=== PATIENT | male | born 1975 | race Caucasian/White ===

== ENCOUNTER 2020-06-22 07:36 | Emergency (ER) | payer OTHER, SELFPAY ==
[2020-06-22] VITALS (14 sets, daily range): BP systolic 111–121; BP diastolic 67–78; PULSE 49–55; RESP 12–22; TEMP 36.2; O2SAT 95–100; BMI 26.4
--- NOTE | 2020-06-22 07:57 | ED.SYNCOPE ---
HPI - Syncope General Chief Complaint: Syncope Stated Complaint: Syncope Time Seen by Provider: 06/22/20 07:44 Source: patient Mode of arrival: EMS Limitations: no limitations History of Present Illness HPI narrative: 45-year-old gentleman with a history of hyperlipidemia presents after a syncopal episode this morning. He describes going on a relatively vigorous to our amount bike ride yesterday and experiencing some increasing low back pain after that over the course of yesterday. He got up to go to the bathroom this morning and was noticing severe low back pain walked into the bathroom with sitting to void and had a syncopal episode. He does not believe he hit his head but he did have a brief loss of consciousness. His described his eyes being open when she 1st went to check on him but no seizure-like behavior. Medics describe moderate diaphoresis but appropriate mental status with a GCS of 15 on arrival in no obvious trauma. Related Data Home Medications Medication Instructions Recorded Confirmed atorvastatin 40 mg tablet 40 mg PO DAILY 06/09/20 06/09/20 Previous Rx's Medication Instructions Recorded cyclobenzaprine 10 mg tablet 10 mg PO BID #20 tab 06/09/20 oxycodone-acetaminophen [Percocet] 1 tab PO Q8H PRN #14 tab 06/22/20 Allergies Allergy/AdvReac Type Severity Reaction Status Date / Time No Known Drug Allergies Allergy Verified 06/09/20 14:25 Review of Systems Review of Systems Narrative: Pertinent positive and negative findings as per HPI Remainder of review of systems is otherwise unremarkable for Constitutional: Fevers, chills, weakness ENT: No sore throat, neck pain, ear pain CV: Chest pain, palpitations, dyspnea on exertion Respiratory: Cough, wheeze, dyspnea GI: Nausea, vomiting, diarrhea, change in bowel habits, black or bloody stools : Dysuria, hematuria, flank pain MS: Muscle weakness, numbness, joint swelling or warmth Skin: Rashes, nonhealing lesions Neuro: dizziness, tingling Psych: Depression, anxiety, suicidal ideation Endocrine: Fatigue, heat or cold intolerance, very dry skin Heme: Easy bruising or bleeding Patient History Medical History Hyperlipidemia (Acute) Low back pain with left-sided sciatica (Acute) Social History Smoking Status: Never smoker Smoking Status: Never smoker alcohol intake frequency: 0-2 drinks per day Substance Use Type: does not use Exam Narrative Exam Narrative: General: Healthy appearing, in no acute distress. Able to give a complete and coherent history. Well-nourished well-developed, mild diaphoresis HEENT: Moist mucous membranes, normal sclera with reactive pupils, no trauma Neck: supple, no midline tenderness Respiratory: Lungs are clear to auscultation, no wheezing no rales no rhonchi. Full and symmetrical air movement Cardiac: Regular rate and rhythm no murmurs no bruits Abdomen: Soft nontender good bowel tones, no flank pain Skin: Warm and dry, no rashes Spine: No point tenderness along thoracic or lumbar spine. Mild paraspinous lumbar spasm bilaterally Neurologic: Grossly neurologically intact with no obvious asymmetries or abnormalities, no sensory loss to lower extremities Extremities: No trauma, well perfused Psych: Cooperative, appropriate insight and affect Initial Vital Signs Initial Vital Signs: Vital Signs Temperature 97.1 F L 06/22/20 07:46 Pulse Rate 51 L 06/22/20 07:46 Respiratory Rate 16 06/22/20 07:46 Blood Pressure 121/76 06/22/20 07:46 Pulse Oximetry 97 06/22/20 07:46 Course Orders Ordered: ED Orders 06/22/20 10:35 CT angio chest PE protocol Stat 06/22/20 11:12 Troponin I Stat Discontinued Medications Sodium Chloride (Normal Saline 0.9%) 1,000 mls @ 1,000 mls/hr IV BOLUS ONE Stop: 06/22/20 11:37 Last Admin: 06/22/20 11:19 Dose: 1,000 mls/hr Documented by: TRAY Vital Signs Vital signs: Vital Signs - 8 hr 06/22/20 11:00 06/22/20 11:18 06/22/20 11:30 Pulse Rate 51 L 50 L 49 L Respiratory Rate 15 16 18 Blood Pressure 119/73 120/78 Pulse Oximetry 100 99 99 06/22/20 12:00 06/22/20 12:30 06/22/20 13:00 Pulse Rate 49 L 54 L 52 L Respiratory Rate 14 21 17 Blood Pressure 121/74 118/67 120/72 Pulse Oximetry 99 99 100 06/22/20 13:30 Pulse Rate 53 L Respiratory Rate 20 Blood Pressure 111/74 Pulse Oximetry 98 MDM - Syncope Medical Records Attestation: I reviewed the patient's medical records. Lab Data Attestation: I reviewed the patient's lab results. Result diagrams: 06/22/20 07:30 06/22/20 07:30 Labs: Lab Results 06/22/20 06/22/20 06/22/20 Range/Units 07:30 07:30 07:30 WBC 5.7 (4.5-11.0) X10^3/uL RBC 4.66 (4.5-5.9) X10^6/uL Hgb 14.1 (13.5-17.5) g/dL Hct 41.9 (41-53) % MCV 90.0 (80-100) fL MCH 30.3 (26-34) PG MCHC 33.7 (30-36) % RDW 13.6 (11.6-14.8) % Plt Count 187 (150-400) X10^3/uL Neut % (Auto) 44.8 L (50-75) % Lymph % (Auto) 43.7 H (25-40) % [place] % (Auto) 9.2 (3-14) % Eos % (Auto) 1.8 L (2-4) % Baso % (Auto) 0.5 (0-2) % Neut # (Auto) 2600 (0432-8759) /uL Lymph # (Auto) 2500 (8677-5267) /uL [place] # (Auto) 500 (0-900) /uL Eos # (Auto) 100 (0-450) /uL Baso # (Auto) 0 (0-100) /uL D-Dimer 285 H (<230) ng/mL Sodium 136 L (137-145) mmol/L Potassium 3.5 (3.4-5.1) mmol/L Chloride 103 (98-107) mmol/L Carbon Dioxide 27 (22-32) mmol/L BUN 24 H (9-20) mg/dL Creatinine 1.02 (0.66-1.25) mg/dL Estimated GFR > 60.0 (>60) mL/min BUN/Creatinine Ratio 23.5 H (6-22) Glucose 116 H (70-100) mg/dL Calcium 8.9 (8.4-10.2) mg/dL Magnesium 2.1 (1.6-2.3) mg/dL Total Bilirubin 1.0 (0.2-1.3) mg/dL AST 45 (17-59) IU/L ALT 83 H (<50) IU/L Alkaline Phosphatase 61 (38-126) U/L Troponin I 0.030 (0.01-0.034) ng/mL Total Protein 6.8 (6.3-8.2) g/dL Albumin 4.1 (3.5-5.0) g/dL Globulin 2.7 (1.7-4.1) g/dL Albumin/Globulin Ratio 1.5 (1.0-2.8) Urine Color Urine Appearance Urine pH (4.5-8.0) Ur Specific [place] (1.000-1.035) Urine Protein (Negative) Urine Glucose (UA) (Negative) g/dL Urine Ketones (NEGATIVE) Urine Occult Blood (Negative) Urine Nitrate (Negative) Urine Bilirubin (NEGATIVE) Urine Urobilinogen (0.2) E.U./dL Ur Leukocyte Esterase (NEGATIVE) Urine RBC (0-5/HPF) Urine WBC (0-5/HPF) Urine Bacteria (None) Ur Culture Indicated? Micro UA Comment 06/22/20 06/22/20 Range/Units 09:10 11:12 WBC (4.5-11.0) X10^3/uL RBC (4.5-5.9) X10^6/uL Hgb (13.5-17.5) g/dL Hct (41-53) % MCV (80-100) fL MCH (26-34) PG MCHC (30-36) % RDW (11.6-14.8) % Plt Count (150-400) X10^3/uL Neut % (Auto) (50-75) % Lymph % (Auto) (25-40) % [place] % (Auto) (3-14) % Eos % (Auto) (2-4) % Baso % (Auto) (0-2) % Neut # (Auto) (9682-5641) /uL Lymph # (Auto) (6124-7361) /uL [place] # (Auto) (0-900) /uL Eos # (Auto) (0-450) /uL Baso # (Auto) (0-100) /uL D-Dimer (<230) ng/mL Sodium (137-145) mmol/L Potassium (3.4-5.1) mmol/L Chloride (98-107) mmol/L Carbon Dioxide (22-32) mmol/L BUN (9-20) mg/dL Creatinine (0.66-1.25) mg/dL Estimated GFR (>60) mL/min BUN/Creatinine Ratio (6-22) Glucose (70-100) mg/dL Calcium (8.4-10.2) mg/dL Magnesium (1.6-2.3) mg/dL Total Bilirubin (0.2-1.3) mg/dL AST (17-59) IU/L ALT (<50) IU/L Alkaline Phosphatase (38-126) U/L Troponin I 0.014 (0.01-0.034) ng/mL Total Protein (6.3-8.2) g/dL Albumin (3.5-5.0) g/dL Globulin (1.7-4.1) g/dL Albumin/Globulin Ratio (1.0-2.8) Urine Color Yellow Urine Appearance Clear Urine pH 5.0 (4.5-8.0) Ur Specific [place] 1.025 (1.000-1.035) Urine Protein Negative (Negative) Urine Glucose (UA) Negative (Negative) g/dL Urine Ketones Trace H (NEGATIVE) Urine Occult Blood Negative (Negative) Urine Nitrate Negative (Negative) Urine Bilirubin Negative (NEGATIVE) Urine Urobilinogen 0.2 (0.2) E.U./dL Ur Leukocyte Esterase Negative (NEGATIVE) Urine RBC None seen (0-5/HPF) Urine WBC None seen (0-5/HPF) Urine Bacteria None seen (None) Ur Culture Indicated? Cult not indicated Micro UA Comment Microscopic normal Imaging Data CT scan - chest: Radiologist's Impression: IMPRESSION: 1. No findings to suggest pulmonary embolism. 2. Bibasilar atelectasis. Dictated by: Darnell Taveras M.D. on 06/22/2020 at 11:01 ECG Data Attestation: I personally reviewed and interpreted this ECG as follows: Interpretation: Sinus [place] at a rate of 50. Slight J-point elevation with nonspecific STT wave changes Normal axis, normal intervals MDM Narrative Medical decision making narrative: 45-year-old gentleman with a syncopal episode wall voiding this morning. EKG and initial troponin are unremarkable. Will repeat a troponin in 3 hours. D-dimer is elevated and will proceed with CTA. Mild ketones on urine and a L of fluid is administered. Repeat troponin is decreasing. CT a is unremarkable. At this point there is no evidence of acute life-threatening injury, coronary syndrome, pulmonary embolism, anemia, infection, arrhythmia to explain the syncopal episode that he has had today. Likely is truly secondary to the acute low back strain from his long bike ride yesterday and is consistent with a history of other vasovagal complaints over the course of his lifetime. He is safe for home discharge at this time. Discharge Plan Departure Patient Disposition: Home Clinical Impression: Vasovagal syncope Low back pain Qualifiers: Chronicity: acute Back pain laterality: midline Sciatica presence: without sciatica Qualified Code(s): M54.5 - Low back pain Discharge Date/Time: 06/22/20 13:50 Instructions: DI for Syncope in Adults (Fainting) Activity Restrictions/Additional Instructions: Thank you for coming in today Your workup does not suggest that passing out today was related to heart event, blood clots in your lungs or overwhelming infection. I suspect that you had a vaso vagal event (based on your description and history of doing this previously) and it does appear that you have recovered nicely. For your acute back strain, using 400 mg of ibuprofen (2 dssm-[id number] pills) and 1 Tylenol every 6 hours can be very helpful in controlling pain. For severe pain using 400 mg of ibuprofen 1 Percocet can be helpful. You may find getting into physical therapy and getting into a routine of exercise and stretching to keep your back is healthy and possible will allow you to continue mountain biking without having severe back pain. I wish you the best Prescriptions: New oxycodone-acetaminophen [Percocet] 5-325 mg tablet 1 tab PO Q8H PRN (Reason: pain) Qty: 14 RF: 0 No Action atorvastatin 40 mg tablet 40 mg PO DAILY RF: 0 cyclobenzaprine 10 mg tablet 10 mg PO BID Qty: 20 RF: 0
--- NOTE | 2020-06-22 08:01 | DI.RAD.S_ITS ---
PROCEDURE: XR CHEST 1V INDICATIONS: Syncope TECHNIQUE: One view of the chest was acquired. COMPARISON: None. FINDINGS: Surgical changes and devices: None. Lungs and pleura: Lungs are clear. No pleural effusions or pneumothorax. Mediastinum: Mediastinal contours appear normal. Heart size is normal. Bones and chest wall: No suspicious bony lesions. Overlying soft tissues appear unremarkable. IMPRESSION: 1. No acute cardiopulmonary disease. Dictated by: Tyrone Jalloh M.D. on 06/22/2020 at 9:24 Approved by: Tyrone Jalloh M.D. on 06/22/2020 at 9:25
[2020-06-22 08:10] LABS: Add Manual Diff / Slide Review NO; Basophils Absolute Auto 0 /uL (0-100); Basophils Percent Auto 0.5 % (0-2); Eosinophils Absolute Auto 100 /uL (0-450); Eosinophils Percent Auto 1.8 % (2-4); Hematocrit 41.9 % (41-53); Hemoglobin 14.1 g/dL (13.5-17.5); Lymphocytes Absolute Auto 2500 /uL (1100-4500); Lymphocytes Percent Auto 43.7 % (25-40); Mean Corpuscular HGB Conc 33.7 % (30-36); Mean Corpuscular Hemoglobin 30.3 PG (26-34); Monocytes Absolute Auto 500 /uL (0-900); Monocytes Percent Auto 9.2 % (3-14); Neutrophils Absolute Auto 2600 /uL (1500-7000); Neutrophils Percent Auto 44.8 % (50-75); Platelet Count 187 X10^3/uL (150-400); Red Blood Cell Count 4.66 X10^6/uL (4.5-5.9); Red Cell Distribution Width 13.6 % (11.6-14.8); White Blood Cell Count 5.7 X10^3/uL (4.5-11.0)
[2020-06-22 08:12] LABS: Alanine Aminotransferase 83 IU/L (<50); Albumin 4.1 g/dL (3.5-5.0); Albumin Globulin Ratio 1.5 (1.0-2.8); Alkaline Phosphatase 61 U/L (38-126); Aspartate Aminotransferase 45 IU/L (17-59); BUN Creatinine Ratio 23.5 (6-22); Blood Urea Nitrogen 24 mg/dL (9-20); Calcium 8.9 mg/dL (8.4-10.2); Carbon Dioxide 27 mmol/L (22-32); Chloride 103 mmol/L (98-107); Estimated Glomerular Filt Rate > 60.0 mL/min (>60); Globulin 2.7 g/dL (1.7-4.1); Glucose 116 mg/dL (70-100); HEMOLYSIS < 15 (0-50); Magnesium 2.1 mg/dL (1.6-2.3); Potassium 3.5 mmol/L (3.4-5.1); Sodium 136 mmol/L (137-145); Total Protein 6.8 g/dL (6.3-8.2)
[2020-06-22 08:24] LABS: D Dimer 285 ng/mL (<230)
[2020-06-22 09:18] LABS: Bacteria Urine None Seen; RBC Urine None Seen (0-5/HPF); WBC Urine None Seen (0-5/HPF)
[2020-06-22 09:19] LABS: Appearance Urine UA CLEAR; Bilirubin Urine UA NEGATIVE (NEGATIVE); Color Urine UA YELLOW; Glucose Urine UA NEGATIVE (Negative); Ketones Urine UA TRACE (NEGATIVE); Leukocyte Esterase Urine UA NEGATIVE (NEGATIVE); Nitrite Urine UA NEGATIVE (Negative); Occult Blood Urine UA NEGATIVE (Negative); Protein Urine UA NEGATIVE (Negative); Specific Gravity Urine UA 1.025 (1.000-1.035); Urobilinogen Urine UA 0.2 E.U./dL (0.2)
[2020-06-22 09:22] LABS: Culture Indicated Urine Cult Not Indicated; Urine Comments Microscopic Normal
--- NOTE | 2020-06-22 09:24 | PC.NURSE ---
pt resting in bed vs on quality assurance monitor final family at bedside pt/ family updated on poc
--- NOTE | 2020-06-22 10:35 | DI.CT.S_ITS ---
PROCEDURE: CT ANGIO CHEST PE PROTOCOL INDICATIONS: syncope, elevated d dimer TECHNIQUE: After the administration of intravenous contrast, 2 mm thick sections acquired from the pulmonary apices to the posterior costophrenic angles. 3-dimensional maximum intensity projection (MIP) coronal and sagittal reformats were then acquired through the thorax. For radiation dose reduction, the following was used: automated exposure control, adjustment of mA and/or kV according to patient size. COMPARISON: Located Within [facility], CR, XR CHEST 1V, 06/22/2020, 8:14. FINDINGS: Image quality: Excellent. Pulmonary arteries: Pulmonary arteries are normal in size, and demonstrate no intraluminal filling defects to suggest central pulmonary embolism. Lungs and pleura: There are bibasilar atelectasis. Lungs are otherwise clear. No pleural effusions or pneumothorax. Central and peripheral airways are patent. Mediastinum: Heart size is normal, without pericardial effusion. No mediastinal or hilar adenopathy. Thoracic aorta is normal in caliber and enhancement. Esophagus is normal in caliber. Tiny hernia. Bones and chest wall: No suspicious bony lesions. Ribs and thoracic spine appear intact throughout. Thyroid gland is normal. No axillary or supraclavicular adenopathy. Abdomen: Visualized upper abdominal solid organs appear normal in the early arterial phase of enhancement. IMPRESSION: 1. No findings to suggest pulmonary embolism. 2. Bibasilar atelectasis. Dictated by: Darnell Taveras M.D. on 06/22/2020 at 11:01 Approved by: Darnell Taveras M.D. on 06/22/2020 at 11:07
--- NOTE | 2020-06-22 10:55 | PC.NURSE ---
pt back from ct placed back on [facility] monitor
--- NOTE | 2020-06-22 11:14 | PC.NURSE ---
rpt troponin drawn
[2020-06-22] MEDS: SODIUM CHLORIDE 0.9% 1,000 ML 1000 ML IV (11:19)
[2020-06-22 11:40] LABS: Troponin I 0.014 ng/mL (0.01-0.034)
--- NOTE | 2020-06-22 13:28 | PC.NURSE ---
at bedside re assessing pt
== END 2020-06-22 13:50 | disposition home or self-care (01) ==
PROVIDERS: Emergency Provider Emergency Medicine
DX: R55 Syncope and collapse (principal); M54.5 Low back pain; R79.89 Other specified abnormal findings of blood chemistry
CPT/HCPCS: 71045; 71275; 80053; 81001; 83735; 84484; 85025; 85379; 93005; 99283; 99284

== ENCOUNTER → 2020-11-17 08:21 | Outpatient (CLI) | payer OTHER, SELFPAY ==
[2020-11-17 09:49] LABS: Add Manual Diff / Slide Review NO; Basophils Absolute Auto 0 /uL (0-100); Basophils Percent Auto 0.3 % (0-2); Eosinophils Absolute Auto 100 /uL (0-450); Hematocrit 43.1 % (41-53); Hemoglobin 14.5 g/dL (13.5-17.5); Lymphocytes Absolute Auto 1700 /uL (1100-4500); Lymphocytes Percent Auto 40.4 % (25-40); Mean Corpuscular HGB Conc 33.7 % (30-36); Mean Corpuscular Hemoglobin 30.5 PG (26-34); Mean Corpuscular Volume 90.6 fL (80-100); Monocytes Absolute Auto 300 /uL (0-900); Monocytes Percent Auto 6.6 % (3-14); Neutrophils Absolute Auto 2100 /uL (1500-7000); Neutrophils Percent Auto 50.7 % (50-75); Platelet Count 175 X10^3/uL (150-400); Red Blood Cell Count 4.75 X10^6/uL (4.5-5.9); Red Cell Distribution Width 13.1 % (11.6-14.8); White Blood Cell Count 4.2 X10^3/uL (4.5-11.0)
[2020-11-17 10:12] LABS: Alanine Aminotransferase 54 IU/L (<50); Albumin 4.2 g/dL (3.5-5.0); Albumin Globulin Ratio 1.6 (1.0-2.8); Alkaline Phosphatase 59 U/L (38-126); Aspartate Aminotransferase 38 IU/L (17-59); BUN Creatinine Ratio 19.5 (6-22); Bilirubin Total 0.6 mg/dL (0.2-1.3); Blood Urea Nitrogen 15 mg/dL (9-20); Calcium 8.9 mg/dL (8.4-10.2); Carbon Dioxide 29 mmol/L (22-32); Chloride 108 mmol/L (98-107); Cholesterol 162 mg/dL (140-199); Estimated Glomerular Filt Rate > 60.0 mL/min (>60); Globulin 2.7 g/dL (1.7-4.1); Glucose 110 mg/dL (70-100); HDL Cholesterol 49 mg/dL (40-60); HEMOLYSIS < 15 (0-50); LDL Cholesterol Calculated 97 mg/dL (<100); Sodium 139 mmol/L (137-145); Total Protein 6.9 g/dL (6.3-8.2); Triglycerides 78 mg/dL (35-150)
[2020-11-17 10:24] LABS: Vitamin D 25 Hydroxy (D3) 27.3 ng/mL (30.0-100.0)
== END ==
PROVIDERS: PCP Family Medicine; Referring Provider Family Medicine; Visit Provider Family Medicine
DX: E78.5 Hyperlipidemia, unspecified (principal); Z13.21 Encounter for screening for nutritional disorder
CPT/HCPCS: 36415; 80053; 80061; 82306; 85025

== ENCOUNTER → 2020-11-19 14:51 | Outpatient (CLI) | payer OTHER, SELFPAY ==
[2020-11-19 15:56] LABS: Hemoglobin A1C% w Est Avg Glu 5.8 % (4.0-6.0)
== END ==
PROVIDERS: PCP Family Medicine; Referring Provider Family Medicine; Visit Provider Family Medicine
DX: R73.01 Impaired fasting glucose (principal)
CPT/HCPCS: 36415; 83036

== ENCOUNTER → 2022-03-17 08:04 | Outpatient (CLI) | payer OTHER, SELFPAY ==
[2022-03-17 09:12] LABS: Alanine Aminotransferase 27 IU/L (<50); Albumin 4.2 g/dL (3.5-5.0); Albumin Globulin Ratio 1.5 (1.0-2.8); Alkaline Phosphatase 75 U/L (38-126); Aspartate Aminotransferase 35 IU/L (17-59); Bilirubin Total 0.6 mg/dL (0.2-1.3); Bilirubin Unconjugated 0.7 mg/dL (0.0-1.1); Globulin 2.8 g/dL (1.7-4.1); HEMOLYSIS < 15 (0-50)
== END ==
PROVIDERS: PCP Family Medicine; Referring Provider Dermatology; Visit Provider Dermatology
DX: B35.1 Tinea unguium (principal)
CPT/HCPCS: 36415; 80076

== ENCOUNTER → 2022-10-03 08:05 | Outpatient (CLI) | payer OTHER, SELFPAY ==
[2022-10-03 09:53] LABS: Influenza A - CEPHEID Flu A NEGATIVE (NEGATIVE); Influenza B - CEPHEID Flu B NEGATIVE (NEGATIVE); Respiratory Syncytial Virus Negative (Negative)
[2022-10-03 10:03] LABS: COVID-19 CEPHEID 4-PLEX PCR Negative (Negative)
== END ==
PROVIDERS: PCP Family Medicine; Visit Provider Physician Assistant Medical
DX: R05.9 Cough, unspecified (principal)
CPT/HCPCS: 0241U

== ENCOUNTER 2023-07-27 12:45 | Outpatient (RCR) | payer OTHER, SELFPAY ==
--- NOTE | 2023-07-11 15:29 | PT.OIE ---
Current Diagnoses Pain in right shoulder (07/11/23) Bicipital tendinitis, left shoulder (07/11/23) Past Medical History (Last Reviewed 05/01/23 @ 14:56 by CELSA Daley) Back stiffness Chicken pox (~1979) Elevated fasting glucose Hemorrhoid (~2008) Hyperlipidemia (~2010) Low back pain with left-sided sciatica (~2019) Lumbar region somatic dysfunction Pelvic somatic dysfunction Plantar warts (~1992) Sacral region somatic dysfunction Segmental and somatic dysfunction of abdomen and other regions Shoulder pain (~2016) Tinnitus (~2015) Vitamin D deficiency Past Surgical History (Last Reviewed 05/01/23 @ 14:56 by CELSA Daley) Anesthesia History of oral surgery (~07/2013) Visit Care Team Role Provider Type Misa Mendes MD Attending Provider Non-Staff Family Provider Primary Care Provider Referring Provider Specialty: Internal Medicine Address: [address] [place] [address],[facility] [address], [address] Email: Physical Therapy Initial Evaluation PT-OP-A Visit Information Start: 07/11/23 14:54 Freq: Status: Active Protocol: Document 07/11/23 12:00 DCW (Rec: 07/11/23 15:13 [facility] [id number]) Out-Patient Physical Therapy Visit Information Visit Information Visit Type Initial Evaluation Visit Start Time 12:00 Visit Stop Time 12:45 Total Visit Minutes 45 Visit Number 1 Number of AUTOMATIC CLIPPER Visits 0 Evaluation Information Evaluation Date 07/11/23 PT-OP-B Current Condition Start: 07/11/23 14:54 Freq: Status: Active Protocol: Document 07/11/23 12:00 DCW (Rec: 07/11/23 15:13 [facility] [id number]) Current Condition History of Current Condition Onset Date Three month history Current Complaints L shoulder pain with swimming motion, lifting weight with long lever arm History of Current Condition Pt is a 48 year old male presenting with a three month history of left anterior shoulder pain. Pt reports he problems actually started ~1 year ago when he hurt his right arm swimming, however at this point, his right shoulder is almost all better , but now the left one has been acting up. Pt goes swimming for ~1 hour three days a week, and pain largely occurs with overhead motion involved in freestyle and backstroke, as well as attempting to lift anything in flexion or ambulation with a long lever arm. Pt largely very active, and is hoping to learn how to independently perform an HEP to help strengthen and stabilize his shoulder. PT-OP-C Subjective Start: 07/11/23 14:54 Freq: Status: Active Protocol: Document 07/11/23 12:00 DCW (Rec: 07/11/23 15:13 DCW [id number]) OP-PT Subjective Patient Comments Patient Comments I don't think it's anything serious, but it's getting annoying. Patient Reported Progress Same Patient Questionnaires Quick Dash- Upper Extremity Quick Dash UE Score 13.64% Quick Dash UE Impairment 1 to 19% Impaired (Score 1-19) OP-PT Pain Assessment Location Left Anterior Lateral Shoulder Intensity 3 Scale Used Numeric (0 - 10) PT-OP-E Functional Tests Start: 07/11/23 14:54 Freq: Status: Active Protocol: Document 07/11/23 12:00 DCW (Rec: 07/11/23 15:13 DCW [id number]) Functional Tests Apley's Scratch Test Action 1- Left Posterior opposite shoulder Action 1- Right Posterior opposite shoulder Action 2- Left T3 Action 2- Right T3 Action 3- Left T5 Action 3- Right T5 PT-OP-F Manual Assessment Start: 07/11/23 14:54 Freq: Status: Active Protocol: Document 07/11/23 12:00 DCW (Rec: 07/11/23 15:13 DCW [id number]) Manual Assessments Soft Tissue Assessment Soft Tissue Mobility Assessment Tenderness to palpation 2/4: Pain with wincing along left bicipital groove and lateral edge of scapula/subscapularis PT-OP-K Range of Motion Start: 07/11/23 14:54 Freq: Status: Active Protocol: Document 07/11/23 12:00 DCW (Rec: 07/11/23 15:13 DCW [id number]) Shoulder Goniometric Range of Motion Shoulder Right Active Shoulder ROM WFL Yes Testing Position Sitting Flexion 180 Abduction 180 External Rotation at 0 degrees Abduction 75 Internal Rotation Behind Back (text) T5 Left Active Shoulder ROM WFL Yes Testing Position Sitting Flexion 180 Abduction 180 External Rotation at 0 degrees Abduction 75 Internal Rotation Behind Back (text) T5 PT-OP-L Special Tests Start: 07/11/23 14:54 Freq: Status: Active Protocol: Document 07/11/23 12:00 DCW (Rec: 07/11/23 15:13 DC [id number]) Special Tests Shoulder Special Tests Speed's Biceps Test Results Positive L Passive ER Rotator Cuff Test Results Negative Painful Arc Test Results Negative Lift-Off Rotator Cuff Test Results Negative Dominguez Ole Impingement Test Results Negative Grind Labrum Test Results Negative Empty Can Test Results Negative Drop Arm Rotator Cuff Test Results Negative Belly Press Test Results Negative Apprehension Test Test Results Negative Anterior Draw Test Results Negative AC Joint Compression Test Results Negative PT-OP-M Strength Start: 07/11/23 14:54 Freq: Status: Active Protocol: Document 07/11/23 12:00 DCW (Rec: 07/11/23 15:13 DCW [id number]) Shoulder Strength Shoulder Manual Muscle Testing Right Flexion 5 Normal Abduction (C5) 5 Normal External Rotation 5 Normal Internal Rotation 5 Normal Left Flexion 5 Normal Abduction (C5) 5 Normal External Rotation 5 Normal Internal Rotation 5 Normal PT-OP-Q Treatments Start: 07/11/23 14:54 Freq: Status: Active Protocol: Document 07/11/23 12:00 DCW (Rec: 07/11/23 15:13 [facility] [id number]) Therapeutic Exercises Sitting Exercises Upper Trap stretch Sitting Exercise Name Upper Trap stretch Side left Standing Exercises Biceps curl Standing Exercise Name Eccentric curl, Reverse curl Side left Resistance Blue T-band Self-STM Standing Exercise Name Self-STM of Subscap Comments Ball on wall Subscap stretch Standing Exercise Name Subscap stretch - Doorway stretch into ER Side left PT-OP-T Assessment and Plan Start: 07/11/23 14:54 Freq: Status: Active Protocol: Document 07/11/23 12:00 DCW (Rec: 07/11/23 15:29 DC [id number]) Physical Therapy Assessment Rehab Potential Rehabilitation Potential Excellent Evaluation Complexity Number of Personal Factors/Comorbidities 0 Number of Body Systems Impaired 1-2 Clinical Presentation at Evaluation Stable Impairments Impairments Functional Activities, Functional Mobility,Pain,Soft Tissue Mobility Goals Two Impairment Pt has difficulty participating in a full hour of swim due to shoulder pain Director Service Goal (LTG) Pt to return to prior functional level of swimming for one hour at least three times a week without increased left shoulder pain. LTG Duration 08/25/23 One Impairment Pt does not have an appropriate home exercise program Short Term Goal (STG) Pt to be independent and compliant with an appropriate HEP STG Duration 08/10/23 Assessment Summary Assessment Pt presents with signs and symptoms consistent with shoulder overuse injury secondary to repetitive swimming motions. Appears to be consistent with mild- moderate bicipital tendonitis and some increased subscap tone. Pt should benefit from skilled therapy focusing on decreasing inflammation, improving shoulder functional strength, education on STM and limiting repetitive movements, and stretching/ flexibility of upper trap. Pt will likely be able to transition to independent HEP due to pt being very active with high motivation. Physical Therapy Plan Frequency and Duration Frequency of Treatment 1-2x/week Plan of Care Start Date 07/11/23 Plan of Care End Date 08/25/23 Therapeutic Interventions Therapeutic Interventions Home Exercise Program,Joint Mobilizations,Manual Therapy, Patient/Caregiver Education, Self-Care/Home Management,Soft Tissue Mobilization, Therapeutic Activities, Therapeutic Exercises Modalities Cold Pack/Ice Massage,Electric Stimulation,Hot Packs, Ultrasound Next Visit Focus/Plan Next Note Type Treatment Note Next Visit Plan STM, joint mobilization, strengthening
--- NOTE | 2023-07-11 15:30 | PT.OPPOC ---
Physical, Occupational & Speech Therapy At [facility] Current Diagnoses Pain in right shoulder (07/11/23) Bicipital tendinitis, left shoulder (07/11/23) Visit Care Team Role Provider Type Misa Mendes MD Attending Provider Non-Staff Family Provider Primary Care Provider Referring Provider Specialty: Internal Medicine Address: [address] [place] [address],[address], [place], [address] Email: Plan Of Care PT-OP-T Assessment and Plan Start: 07/11/23 14:54 Freq: Status: Active Protocol: Document 07/11/23 12:00 DCW (Rec: 07/11/23 15:29 DCW [id number]) Physical Therapy Assessment Rehab Potential Rehabilitation Potential Excellent Evaluation Complexity Number of Personal Factors/Comorbidities 0 Number of Body Systems Impaired 1-2 Clinical Presentation at Evaluation Stable Impairments Impairments Functional Activities, Functional Mobility,Pain,Soft Tissue Mobility Goals Two Impairment Pt has difficulty participating in a full hour of swim due to shoulder pain [place] [place] [employer]room Goal (LTG) Pt to return to prior functional level of swimming for one hour at least three times a week without increased left shoulder pain. LTG Duration 08/25/23 One Impairment Pt does not have an appropriate home exercise program Short Term Goal (STG) Pt to be independent and compliant with an appropriate HEP STG Duration 08/10/23 Assessment Summary Assessment Pt presents with signs and symptoms consistent with shoulder overuse injury secondary to repetitive swimming motions. Appears to be consistent with mild- moderate bicipital tendonitis and some increased subscap tone. Pt should benefit from skilled therapy focusing on decreasing inflammation, improving shoulder functional strength, education on STM and limiting repetitive movements , and stretching/flexibility of upper trap. Pt will likely be able to transition to independent HEP due to pt being very active with high motivation. Physical Therapy Plan Frequency and Duration Frequency of Treatment 1-2x/week Plan of Care Start Date 07/11/23 Plan of Care End Date 08/25/23 Therapeutic Interventions Therapeutic Interventions Home Exercise Program,Joint Mobilizations,Manual Therapy, Patient/Caregiver Education, Self-Care/Home Management,Soft Tissue Mobilization, Therapeutic Activities, Therapeutic Exercises Modalities Cold Pack/Ice Massage,Electric Stimulation,Hot Packs, Ultrasound Next Visit Focus/Plan Next Note Type Treatment Note Next Visit Plan STM, joint mobilization, strengthening Plan of Care Dates Plan of Care Start Date 07/11/23 Plan of Care End Date 08/25/23 Electronically Signed by: Andrea Berger, PT 07/11/23 [id number] If you are in agreement with this Plan of Care, please return a signed and dated copy. I have reviewed this Plan of Care and certify that the skilled therapy services above are required to meet the patient?s needs. Physician Signature Date Printed Name and Credentials Clinical Instructor Signature Printed Name and Credentials
--- NOTE | 2023-07-18 15:03 | PT.OTN ---
Current Diagnoses Pain in right shoulder (07/18/23) Bicipital tendinitis, left shoulder (07/18/23) Physical Therapy Treatment Note PT-OP-A Visit Information Start: 07/11/23 14:54 Freq: Status: Active Protocol: Document 07/18/23 14:15 DCW (Rec: 07/18/23 15:03 DCW [id number]) Out-Patient Physical Therapy Visit Information Visit Information Visit Type Treatment Note Visit Start Time 14:15 Visit Stop Time 15:00 Total Visit Minutes 45 Visit Number 2 Number of SOFTWARE DEPLOYMENT ENGINEER Visits 0 Evaluation Information Evaluation Date 07/11/23 PT-OP-B Current Condition Start: 07/11/23 14:54 Freq: Status: Active Protocol: Document 07/11/23 12:00 DCW (Rec: 07/11/23 15:13 DCW [id number]) Current Condition History of Current Condition Onset Date Three month history Current Complaints L shoulder pain with swimming motion, lifting weight with long lever arm History of Current Condition Pt is a 48 year old male presenting with a three month history of left anterior shoulder pain. Pt reports he problems actually started ~1 year ago when he hurt his right arm swimming, however at this point, his right shoulder is almost all better , but now the left one has been acting up. Pt goes swimming for ~1 hour three days a week, and pain largely occurs with overhead motion involved in freestyle and backstroke, as well as attempting to lift anything in flexion or abuction with a long lever arm. Pt largely very active, and is hoping to learn how to independently perform an HEP to help strengthen and stabilize his shoulder. PT-OP-C Subjective Start: 07/11/23 14:54 Freq: Status: Active Protocol: Document 07/18/23 14:15 DCW (Rec: 07/18/23 15:03 DCW [id number]) OP-PT Subjective Patient Comments Patient Comments Pt notes he has been swimming some since last visit, however has decreased his swim to a shorted workout. PT-OP-E Functional Tests Start: 07/11/23 14:54 Freq: Status: Active Protocol: Document 07/11/23 12:00 DCW (Rec: 07/11/23 15:13 DCW [id number]) Functional Tests Romey's Scratch Test Action 1- Left Posterior opposite shoulder Action 1- Right Posterior opposite shoulder Action 2- Left T3 Action 2- Right T3 Action 3- Left T5 Action 3- Right T5 PT-OP-F Manual Assessment Start: 07/11/23 14:54 Freq: Status: Active Protocol: Document 07/11/23 12:00 DCW (Rec: 07/11/23 15:13 DCW [id number]) Manual Assessments Soft Tissue Assessment Soft Tissue Mobility Assessment Tenderness to palpation 2/4: Pain with wincing along left bicipital groove and lateral edge of scapula/subscapularis PT-OP-K Range of Motion Start: 07/11/23 14:54 Freq: Status: Active Protocol: Document 07/11/23 12:00 DCW (Rec: 07/11/23 15:13 DCW [id number]) Shoulder Goniometric Range of Motion Shoulder Right Active Shoulder ROM WFL Yes Testing Position Sitting Flexion 180 Abduction 180 External Rotation at 0 degrees Abduction 75 Internal Rotation Behind Back (text) T5 Left Active Shoulder ROM WFL Yes Testing Position Sitting Flexion 180 Abduction 180 External Rotation at 0 degrees Abduction 75 Internal Rotation Behind Back (text) T5 PT-OP-L Special Tests Start: 07/11/23 14:54 Freq: Status: Active Protocol: Document 07/11/23 12:00 DCW (Rec: 07/11/23 15:13 DCW [id number]) Special Tests Shoulder Special Tests Speed's Biceps Test Results Positive L Passive ER Rotator Cuff Test Results Negative Painful Arc Test Results Negative Lift-Off Rotator Cuff Test Results Negative Dominguez Ole Impingement Test Results Negative Grind Labrum Test Results Negative Empty Can Test Results Negative Drop Arm Rotator Cuff Test Results Negative Belly Press Test Results Negative Apprehension Test Test Results Negative Anterior Draw Test Results Negative AC Joint Compression Test Results Negative PT-OP-M Strength Start: 07/11/23 14:54 Freq: Status: Active Protocol: Document 07/11/23 12:00 DCW (Rec: 07/11/23 15:13 DCW [id number]) Shoulder Strength Shoulder Manual Muscle Testing Right Flexion 5 Normal Abduction (C5) 5 Normal External Rotation 5 Normal Internal Rotation 5 Normal Left Flexion 5 Normal Abduction (C5) 5 Normal External Rotation 5 Normal Internal Rotation 5 Normal PT-OP-Q Treatments Start: 07/11/23 14:54 Freq: Status: Active Protocol: Document 07/18/23 14:15 DCW (Rec: 07/18/23 15:03 DC [id number]) Gym Equipment Therapeutic Ball I's, Y's T's Exercise Details I's, Y's T's Ball Size/Color Green - 65 cm 5# Body Position Prone Therapeutic Exercises Supine Exercises Serratus Punch Supine Exercise Name Serratus Punch Side bilateral Resistance 10# PVC Flexion Supine Exercise Name Shoulder Flexion /c PVC Side bilateral Resistance 10# Manual Therapy Treatment Soft Tissue Mobilization Parascapular Body Location L Parascapulars, biceps, Upper trap, Pec Mobilization Type Sustained Pressure,Trigger Point Release Intensity/Depth Moderate Joint Mobilizations Scapulothoracic Joint L ST Direction Lateral Grade III Body Position Sidelying GH Joint L GH Direction Inf Grade III Body Position Supine Taping LH Biceps Body Location Y-strip perpendicular to left LH Biceps Type of Tape Kinesio Tape PT-OP-T Assessment and Plan Start: 07/11/23 14:54 Freq: Status: Active Protocol: Document 07/18/23 14:15 DC (Rec: 07/18/23 15:03 DC [id number]) Physical Therapy Assessment Impairments Impairments Functional Activities, Functional Mobility,Pain,Soft Tissue Mobility Goals Two Impairment Pt has difficulty participating in a full hour of swim due to shoulder pain Detention Goal (LTG) Pt to return to prior functional level of swimming for one hour at least three times a week without increased left shoulder pain. LTG Duration 08/25/23 One Impairment Pt does not have an appropriate home exercise program Short Term Goal (STG) Pt to be independent and compliant with an appropriate HEP STG Duration 08/10/23 Assessment Summary Assessment Excellent response to treatment today, pt did display quicker fatigue through left shoulder than right with TherEx. Continue to focus on decreasing tone and inflammation, as well as improving strength in order to increase joint stability. Physical Therapy Plan Frequency and Duration Frequency of Treatment 1-2x/week Plan of Care Start Date 07/11/23 Plan of Care End Date 08/25/23 Therapeutic Interventions Therapeutic Interventions Home Exercise Program,Joint Mobilizations,Manual Therapy, Patient/Caregiver Education, Self-Care/Home Management,Soft Tissue Mobilization, Therapeutic Activities, Therapeutic Exercises Modalities Cold Pack/Ice Massage,Electric Stimulation,Hot Packs, Ultrasound Next Visit Focus/Plan Next Note Type Treatment Note Next Visit Plan STM, joint mobilization, strengthening
--- NOTE | 2023-07-21 14:48 | PT.OTN ---
Current Diagnoses Pain in right shoulder (07/21/23) Bicipital tendinitis, left shoulder (07/21/23) Physical Therapy Treatment Note PT-OP-A Visit Information Start: 07/11/23 14:54 Freq: Status: Active Protocol: Document 07/21/23 11:32 NBM (Rec: 07/21/23 14:46 [facility] [id number]) Out-Patient Physical Therapy Visit Information Visit Information Visit Type Treatment Note Visit Start Time 11:33 Visit Stop Time 12:15 Total Visit Minutes 42 Visit Number 3 Number of EXECUTIVE PASTRY CHEF Visits 1 PT-OP-B Current Condition Start: 07/11/23 14:54 Freq: Status: Active Protocol: Document 07/11/23 12:00 DCW (Rec: 07/11/23 15:13 DCW [id number]) Current Condition History of Current Condition Onset Date Three month history Current Complaints L shoulder pain with swimming motion, lifting weight with long lever arm History of Current Condition Pt is a 48 year old male presenting with a three month history of left anterior shoulder pain. Pt reports he problems actually started ~1 year ago when he hurt his right arm swimming, however at this point, his right shoulder is almost all better , but now the left one has been acting up. Pt goes swimming for ~1 hour three days a week, and pain largely occurs with overhead motion involved in freestyle and backstroke, as well as attempting to lift anything in flexion or abuction with a long lever arm. Pt largely very active, and is hoping to learn how to independently perform an HEP to help strengthen and stabilize his shoulder. PT-OP-C Subjective Start: 07/11/23 14:54 Freq: Status: Active Protocol: Document 07/21/23 11:32 NBM (Rec: 07/21/23 14:46 [facility] [id number]) OP-PT Subjective Patient Comments Patient Comments Jesus reports he swam yesterday and it was difficult while swimming and then he had more discomfort in the evening. He woke up with L side of neck sore and continues to have pain and tenderness in L shoulder. He is not sure if the KT tape is helping. He does his ex's but ices and stretches inconsistently. PT-OP-E Functional Tests Start: 07/11/23 14:54 Freq: Status: Active Protocol: Document 07/11/23 12:00 DCW (Rec: 07/11/23 15:13 DCW [id number]) Functional Tests Apley's Scratch Test Action 1- Left Posterior opposite shoulder Action 1- Right Posterior opposite shoulder Action 2- Left T3 Action 2- Right T3 Action 3- Left T5 Action 3- Right T5 PT-OP-F Manual Assessment Start: 07/11/23 14:54 Freq: Status: Active Protocol: Document 07/11/23 12:00 DCW (Rec: 07/11/23 15:13 DCW [id number]) Manual Assessments Soft Tissue Assessment Soft Tissue Mobility Assessment Tenderness to palpation 2/4: Pain with wincing along left bicipital groove and lateral edge of scapula/subscapularis PT-OP-K Range of Motion Start: 07/11/23 14:54 Freq: Status: Active Protocol: Document 07/11/23 12:00 DCW (Rec: 07/11/23 15:13 DCW [id number]) Shoulder Goniometric Range of Motion Shoulder Right Active Shoulder ROM WFL Yes Testing Position Sitting Flexion 180 Abduction 180 External Rotation at 0 degrees Abduction 75 Internal Rotation Behind Back (text) T5 Left Active Shoulder ROM WFL Yes Testing Position Sitting Flexion 180 Abduction 180 External Rotation at 0 degrees Abduction 75 Internal Rotation Behind Back (text) T5 PT-OP-L Special Tests Start: 07/11/23 14:54 Freq: Status: Active Protocol: Document 07/11/23 12:00 DCW (Rec: 07/11/23 15:13 DCW [id number]) Special Tests Shoulder Special Tests Speed's Biceps Test Results Positive L Passive ER Rotator Cuff Test Results Negative Painful Arc Test Results Negative Lift-Off Rotator Cuff Test Results Negative Dominguez Ole Impingement Test Results Negative Grind Labrum Test Results Negative Empty Can Test Results Negative Drop Arm Rotator Cuff Test Results Negative Belly Press Test Results Negative Apprehension Test Test Results Negative Anterior Draw Test Results Negative AC Joint Compression Test Results Negative PT-OP-M Strength Start: 07/11/23 14:54 Freq: Status: Active Protocol: Document 07/11/23 12:00 DCW (Rec: 07/11/23 15:13 DCW [id number]) Shoulder Strength Shoulder Manual Muscle Testing Right Flexion 5 Normal Abduction (C5) 5 Normal External Rotation 5 Normal Internal Rotation 5 Normal Left Flexion 5 Normal Abduction (C5) 5 Normal External Rotation 5 Normal Internal Rotation 5 Normal PT-OP-Q Treatments Start: 07/11/23 14:54 Freq: Status: Active Protocol: Document 07/21/23 11:32 [facility] (Rec: 07/21/23 14:46 [facility] [id number]) Gym Equipment Therapeutic Ball I's, Y's T's Exercise Details I's, Y's T's Ball Size/Color Green - 65 cm 5# Body Position Prone Comments cues for scap setting, chin tuck, breath. Therapeutic Exercises Supine Exercises Serratus Punch Supine Exercise Name Serratus Punch Side bilateral Resistance 10# PVC Reps/Minutes x12 Comments vc scap setting, breath Flexion Supine Exercise Name Shoulder Flexion /c PVC Side bilateral Resistance 10# Reps/Minutes x10 Comments vc scap setting, breath Sitting Exercises Upper Trap stretch Sitting Exercise Name Upper Trap stretch - verbal review Side left Standing Exercises Biceps curl Standing Exercise Name Eccentric curl, Reverse curl Side left Resistance Blue T-band Comments vc for breathwork, form, posture Subscap stretch Standing Exercise Name Subscap stretch - Doorway stretch into ER Side left Manual Therapy Treatment Soft Tissue Mobilization Parascapular Body Location L Parascapulars, biceps, Upper trap, Pec Mobilization Type Sustained Pressure,Trigger Point Release Intensity/Depth Moderate Body Position Hooklying PT-OP-R Modalities Start: 07/21/23 14:47 Freq: Status: Active Protocol: Document 07/21/23 11:32 NB (Rec: 07/21/23 14:48 [facility] [id number]) Hot Pack/Cold Pack Treatment Cold Pack Location L shoulder Patient Position Hooklying Treatment Duration (minutes) 10 Patient Tolerance Good PT-OP-T Assessment and Plan Start: 07/11/23 14:54 Freq: Status: Active Protocol: Document 07/21/23 11:32 [facility] (Rec: 07/21/23 14:46 [facility] [id number]) Physical Therapy Assessment Goals Two Impairment Pt has difficulty participating in a full hour of swim due to shoulder pain Longterm Goal (LTG) Pt to return to prior functional level of swimming for one hour at least three times a week without increased left shoulder pain. LTG Duration 08/25/23 One Impairment Pt does not have an appropriate home exercise program Short Term Goal (STG) Pt to be independent and compliant with an appropriate HEP STG Duration 08/10/23 Assessment Summary Assessment Treatment focus on HEP review, manual therapy, and education for pain management. Jesus requires consistent cues for breathwork, upright posture and chin tuck throughout session. With prone activity and overhead ex he requires verbal and tactile cues for scapular setting and UT overactivation. Palpable tension to L Levator scap. m. and UT decreases after manual therapy. Pt is encouraged to maintain current HEP with focus on form and breathwork, and increase icing after activity for inflammation and pain management and stretch more frequently, dynamic stretch after warmup being preferred to static stretch with activity. Pt's report of shoulder pain 3/10 beginning of session improves to 11/08 end of session. Physical Therapy Plan Frequency and Duration Frequency of Treatment 1-2x/week Plan of Care Start Date 07/11/23 Plan of Care End Date 08/25/23 Therapeutic Interventions Therapeutic Interventions Home Exercise Program,Joint Mobilizations,Manual Therapy, Patient/Caregiver Education, Self-Care/Home Management,Soft Tissue Mobilization, Therapeutic Activities, Therapeutic Exercises Modalities Cold Pack/Ice Massage,Electric Stimulation,Hot Packs, Ultrasound Next Visit Focus/Plan Next Note Type Treatment Note Next Visit Plan STM, joint mobilization, strengthening
--- NOTE | 2023-07-27 13:31 | PT.OTN ---
Current Diagnoses Pain in right shoulder (07/27/23) Bicipital tendinitis, left shoulder (07/27/23) Physical Therapy Treatment Note PT-OP-A Visit Information Start: 07/11/23 14:54 Freq: Status: Active Protocol: Document 07/27/23 12:50 DCW (Rec: 07/27/23 13:31 DCW [id number]) Out-Patient Physical Therapy Visit Information Visit Information Visit Type Treatment Note Visit Start Time 12:50 Visit Stop Time 13:30 Total Visit Minutes 40 Visit Number 4 Number of TURBINE MEASUREMENTS ENGINEER Visits 0 Evaluation Information Evaluation Date 07/11/23 PT-OP-B Current Condition Start: 07/11/23 14:54 Freq: Status: Active Protocol: Document 07/11/23 12:00 DCW (Rec: 07/11/23 15:13 DCW [id number]) Current Condition History of Current Condition Onset Date Three month history Current Complaints L shoulder pain with swimming motion, lifting weight with long lever arm History of Current Condition Pt is a 48 year old male presenting with a three month history of left anterior shoulder pain. Pt reports he problems actually started ~1 year ago when he hurt his right arm swimming, however at this point, his right shoulder is almost all better , but now the left one has been acting up. Pt goes swimming for ~1 hour three days a week, and pain largely occurs with overhead motion involved in freestyle and backstroke, as well as attempting to lift anything in flexion or abuction with a long lever arm. Pt largely very active, and is hoping to learn how to independently perform an HEP to help strengthen and stabilize his shoulder. PT-OP-C Subjective Start: 07/11/23 14:54 Freq: Status: Active Protocol: Document 07/27/23 12:50 DCW (Rec: 07/27/23 13:31 DCW [id number]) OP-PT Subjective Patient Comments Patient Comments I just did an hour in the pool, I feel...okay. PT-OP-E Functional Tests Start: 07/11/23 14:54 Freq: Status: Active Protocol: Document 07/11/23 12:00 DCW (Rec: 07/11/23 15:13 DCW [id number]) Functional Tests Romey's Scratch Test Action 1- Left Posterior opposite shoulder Action 1- Right Posterior opposite shoulder Action 2- Left T3 Action 2- Right T3 Action 3- Left T5 Action 3- Right T5 PT-OP-F Manual Assessment Start: 07/11/23 14:54 Freq: Status: Active Protocol: Document 07/11/23 12:00 DCW (Rec: 07/11/23 15:13 DCW [id number]) Manual Assessments Soft Tissue Assessment Soft Tissue Mobility Assessment Tenderness to palpation 2/4: Pain with wincing along left bicipital groove and lateral edge of scapula/subscapularis PT-OP-K Range of Motion Start: 07/11/23 14:54 Freq: Status: Active Protocol: Document 07/11/23 12:00 DCW (Rec: 07/11/23 15:13 DCW [id number]) Shoulder Goniometric Range of Motion Shoulder Right Active Shoulder ROM WFL Yes Testing Position Sitting Flexion 180 Abduction 180 External Rotation at 0 degrees Abduction 75 Internal Rotation Behind Back (text) T5 Left Active Shoulder ROM WFL Yes Testing Position Sitting Flexion 180 Abduction 180 External Rotation at 0 degrees Abduction 75 Internal Rotation Behind Back (text) T5 PT-OP-L Special Tests Start: 07/11/23 14:54 Freq: Status: Active Protocol: Document 07/11/23 12:00 DCW (Rec: 07/11/23 15:13 DCW [id number]) Special Tests Shoulder Special Tests Speed's Biceps Test Results Positive L Passive ER Rotator Cuff Test Results Negative Painful Arc Test Results Negative Lift-Off Rotator Cuff Test Results Negative Dominguez Ole Impingement Test Results Negative Grind Labrum Test Results Negative Empty Can Test Results Negative Drop Arm Rotator Cuff Test Results Negative Belly Press Test Results Negative Apprehension Test Test Results Negative Anterior Draw Test Results Negative AC Joint Compression Test Results Negative PT-OP-M Strength Start: 07/11/23 14:54 Freq: Status: Active Protocol: Document 07/11/23 12:00 DCW (Rec: 07/11/23 15:13 DCW [id number]) Shoulder Strength Shoulder Manual Muscle Testing Right Flexion 5 Normal Abduction (C5) 5 Normal External Rotation 5 Normal Internal Rotation 5 Normal Left Flexion 5 Normal Abduction (C5) 5 Normal External Rotation 5 Normal Internal Rotation 5 Normal PT-OP-Q Treatments Start: 07/11/23 14:54 Freq: Status: Active Protocol: Document 07/27/23 12:50 DCW (Rec: 07/27/23 13:31 DCW [id number]) Gym Equipment Cable Column (Body Solid) Rows Resistance 40# Reps/Time x15 Lat Pull Down Resistance 40# Reps/Time x15 Therapeutic Exercises Supine Exercises Serratus Punch Supine Exercise Name Serratus Punch Side bilateral Resistance 10# PVC Flexion Supine Exercise Name Shoulder Flexion /c PVC Side bilateral Resistance 10# Manual Therapy Treatment Soft Tissue Mobilization Parascapular Body Location L Parascapulars, biceps, Upper trap, Pec Mobilization Type Sustained Pressure,Trigger Point Release Intensity/Depth Moderate Body Position Hooklying Joint Mobilizations Scapulothoracic Joint L ST Direction Lateral Grade III Body Position Sidelying GH Joint L GH Direction Inf Grade III Body Position Supine PT-OP-R Modalities Start: 07/21/23 14:47 Freq: Status: Active Protocol: Document 07/21/23 11:32 NBM (Rec: 07/21/23 14:48 NBM [id number]) Hot Pack/Cold Pack Treatment Cold Pack Location L shoulder Patient Position Hooklying Treatment Duration (minutes) 10 Patient Tolerance Good PT-OP-T Assessment and Plan Start: 07/11/23 14:54 Freq: Status: Active Protocol: Document 07/27/23 12:50 DCW (Rec: 07/27/23 13:31 DCW [id number]) Physical Therapy Assessment Impairments Impairments Functional Activities, Functional Mobility,Pain,Soft Tissue Mobility Goals Two Impairment Pt has difficulty participating in a full hour of swim due to shoulder pain [employer] Former Goal (LTG) Pt to return to prior functional level of swimming for one hour at least three times a week without increased left shoulder pain. LTG Duration 08/25/23 One Impairment Pt does not have an appropriate home exercise program Short Term Goal (STG) Pt to be independent and compliant with an appropriate HEP STG Duration 08/10/23 Assessment Summary Assessment Pt showing some increased tone today after spending more time swimming recently, responded well to STM, still L >R shoulder weakness with strengthening activities. Physical Therapy Plan Frequency and Duration Frequency of Treatment 1-2x/week Plan of Care Start Date 07/11/23 Plan of Care End Date 08/25/23 Therapeutic Interventions Therapeutic Interventions Home Exercise Program,Joint Mobilizations,Manual Therapy, Patient/Caregiver Education, Self-Care/Home Management,Soft Tissue Mobilization, Therapeutic Activities, Therapeutic Exercises Modalities Cold Pack/Ice Massage,Electric Stimulation,Hot Packs, Ultrasound Next Visit Focus/Plan Next Note Type Treatment Note Next Visit Plan STM, joint mobilization, strengthening
--- NOTE | 2023-12-26 11:51 | PT.OPDS ---
Current Diagnoses Pain in right shoulder (07/27/23) Bicipital tendinitis, left shoulder (07/27/23) Visit Care Team Role Provider Type Misa Mendes MD Attending Provider Non-Staff Family Provider Primary Care Provider Referring Provider Specialty: Internal Medicine Address: [address] [place] [address],[address], [place], [address] Email: Visit Number Visit Number 4 Discharge Summary PT-OP-B Current Condition Start: 07/11/23 14:54 Freq: Status: Active Protocol: Document 07/11/23 12:00 DCW (Rec: 07/11/23 15:13 DCW [id number]) Current Condition History of Current Condition Onset Date Three month history Current Complaints L shoulder pain with swimming motion, lifting weight with long lever arm History of Current Condition Pt is a 48 year old male presenting with a three month history of left anterior shoulder pain. Pt reports he problems actually started ~1 year ago when he hurt his right arm swimming, however at this point, his right shoulder is almost all better , but now the left one has been acting up. Pt goes swimming for ~1 hour three days a week, and pain largely occurs with overhead motion involved in freestyle and backstroke, as well as attempting to lift anything in flexion or abuction with a long lever arm. Pt largely very active, and is hoping to learn how to independently perform an HEP to help strengthen and stabilize his shoulder. PT-OP-C Subjective Start: 07/11/23 14:54 Freq: Status: Active Protocol: Document 07/27/23 12:50 DCW (Rec: 07/27/23 13:31 DCW [id number]) OP-PT Subjective Patient Comments Patient Comments I just did an hour in the pool, I feel...okay. PT-OP-E Functional Tests Start: 07/11/23 14:54 Freq: Status: Active Protocol: Document 07/11/23 12:00 DCW (Rec: 07/11/23 15:13 DCW [id number]) Functional Tests Romey's Scratch Test Action 1- Left Posterior opposite shoulder Action 1- Right Posterior opposite shoulder Action 2- Left T3 Action 2- Right T3 Action 3- Left T5 Action 3- Right T5 PT-OP-F Manual Assessment Start: 07/11/23 14:54 Freq: Status: Active Protocol: Document 07/11/23 12:00 DCW (Rec: 07/11/23 15:13 DCW [id number]) Manual Assessments Soft Tissue Assessment Soft Tissue Mobility Assessment Tenderness to palpation 2/4: Pain with wincing along left bicipital groove and lateral edge of scapula/subscapularis PT-OP-K Range of Motion Start: 07/11/23 14:54 Freq: Status: Active Protocol: Document 07/11/23 12:00 DCW (Rec: 07/11/23 15:13 DCW [id number]) Shoulder Goniometric Range of Motion Shoulder Right Active Shoulder ROM WFL Yes Testing Position Sitting Flexion 180 Abduction 180 External Rotation at 0 degrees Abduction 75 Internal Rotation Behind Back (text) T5 Left Active Shoulder ROM WFL Yes Testing Position Sitting Flexion 180 Abduction 180 External Rotation at 0 degrees Abduction 75 Internal Rotation Behind Back (text) T5 PT-OP-L Special Tests Start: 07/11/23 14:54 Freq: Status: Active Protocol: Document 07/11/23 12:00 DCW (Rec: 07/11/23 15:13 DCW [id number]) Special Tests Shoulder Special Tests Speed's Biceps Test Results Positive L Passive ER Rotator Cuff Test Results Negative Painful Arc Test Results Negative Lift-Off Rotator Cuff Test Results Negative Dominguez Ole Impingement Test Results Negative Grind Labrum Test Results Negative Empty Can Test Results Negative Drop Arm Rotator Cuff Test Results Negative Belly Press Test Results Negative Apprehension Test Test Results Negative Anterior Draw Test Results Negative AC Joint Compression Test Results Negative PT-OP-M Strength Start: 07/11/23 14:54 Freq: Status: Active Protocol: Document 07/11/23 12:00 DCW (Rec: 07/11/23 15:13 DCW [id number]) Shoulder Strength Shoulder Manual Muscle Testing Right Flexion 5 Normal Abduction (C5) 5 Normal External Rotation 5 Normal Internal Rotation 5 Normal Left Flexion 5 Normal Abduction (C5) 5 Normal External Rotation 5 Normal Internal Rotation 5 Normal PT-OP-T Assessment and Plan Start: 07/11/23 14:54 Freq: Status: Active Protocol: Document 12/26/23 11:50 DCW (Rec: 12/26/23 11:51 DCW [id number]) Physical Therapy Assessment Assessment Summary Assessment Pt canceled/no-showed last four scheduled appointments, has not scheduled any more. Has not been seen in more than four months. Will be discharged from skilled therapy, will require a new referral in order to return in the future. Physical Therapy Plan Discharge Physical Therapy Discharge Reasons No Longer Attending PT
== END 2023-12-27 10:05 | disposition home or self-care (01) ==
LOC: PHYS 12:45
PROVIDERS: Family Provider Internal Medicine; PCP Internal Medicine; Referring Provider Internal Medicine; Visit Provider Internal Medicine
DX: M25.511 Pain in right shoulder (principal); M75.22 Bicipital tendinitis, left shoulder
CPT/HCPCS: 97110; 97140; 97161

== ENCOUNTER → 2023-11-06 09:45 | Outpatient (CLI) | payer OTHER, SELFPAY ==
[2023-11-06 12:05] LABS: Influenza A - CEPHEID Flu A NEGATIVE (NEGATIVE); Influenza B - CEPHEID Flu B NEGATIVE (NEGATIVE); Respiratory Syncytial Virus Negative (Negative)
[2023-11-06 12:06] LABS: COVID-19 CEPHEID 4-PLEX PCR Negative (Negative)
== END ==
PROVIDERS: Family Provider Internal Medicine; PCP Internal Medicine; Visit Provider Physician Assistant
DX: R05.1 Acute cough (principal)
CPT/HCPCS: 0241U